=== PATIENT | female | born 2000 | race Asian ===

== ENCOUNTER 2024-06-04 10:27 | Emergency (ER) | payer BC ==
[~2024-06-04] VITALS: Ht 170.2 cm; Wt 68.2 kg
[2024-06-04] MEDS: DEXAMETHASONE 4 MG TABLET PO ONE (12:04)
[2024-06-04] MEDS ORDERED: CLIN-26 PO (12:06)
[2024-06-04] MEDS ORDERED: IBUP-1492 PO (12:06)
[2024-06-04 12:12] VITALS: BP 112/55; PULSE 79; RESP 18; TEMP 98.2
== END 2024-06-04 12:20 | disposition home or self-care (01) ==
LOC: EMS 10:27
DX: J36 Peritonsillar abscess (principal); F17.210 Nicotine dependence, cigarettes, uncomplicated; Z88.0 Allergy status to penicillin
CPT/HCPCS: 99283; J8540